=== PATIENT | male | born 1975 | race Two or more races ===

== ENCOUNTER 2024-03-27 04:08 | Emergency (ER) | payer OTHER ==
[~2024-03-27] VITALS: Ht 165.1 cm; Wt 66.2 kg
[2024-03-27] MEDS ORDERED: KETOROLAC TROMETHAMINE 30 MG VIAL IV STA (05:29)
[2024-03-27] MEDS ORDERED: MEPERIDINE HCL/PF 50 MG/ML VIAL IM STA (05:29)
[2024-03-27] MEDS ORDERED: PROMETHAZINE HCL 50 MG/ML AMPUL IM STA (05:29)
[2024-03-27] MEDS ORDERED: HYOSCYAMINE SULFATE 0.125 MG TAB.SUBL SL ONE (05:30)
[2024-03-27] MEDS ORDERED: TAMSULOSIN HCL 0.4 MG CAP PO STA (05:30)
[2024-03-27 06:33] LABS: HEMATOCRIT 43.8 % (39.0-48.0); HEMOGLOBIN 15.5 g/dL (13-16.00); MEAN CORPUSCULAR HEMOGLOBIN 27.7 pg (27.00-32.0); MEAN CORPUSCULAR HGB CONC 35.5 g/dl (32.0-36.0); PLATELET COUNT 139 K/uL (150-450); RED BLOOD COUNT 5.61 M/uL (4.00-6.00); RED CELL DISTRIBUTION WIDTH 14.5 % (11.5-14.5)
[2024-03-27 06:42] LABS: CALCIUM 9.2 mg/dL (8.5-10.1); CREATININE SERUM 1.15 mg/dL (0.70-1.30); GFR 68.16; POTASSIUM 3.71 mEq/L (3.5-5.1)
[2024-03-27 06:58] LABS: URINE APPEARANCE Cloudy; URINE BILIRRUBIN Negative (NEGATIVE); URINE BLOOD Small; URINE COLOR Yellow; URINE GLUCOSE Negative (NEGATIVE); URINE LEUKOCYTE Trace; URINE NITRATE Negative; URINE PROTEIN 30 (NEGATIVE)
[2024-03-27 06:59] LABS: URINE BACTERIA 128.5 uL (0.0-1933); URINE EPITHELIAL CELLS 8.5 uL (0.0-38.8); URINE RBC 137.8 uL (0.0-20.8); URINE WBC 14.3 uL (0.0-23.2)
[2024-03-27 07:17] LABS: URINE CAST 0.29 uL (0.0-1.40); URINE KETONE >=160 (NEGATIVE)
== END 2024-03-27 07:59 | disposition home or self-care (01) ==
LOC: ER 04:10
DX: N20.1 Calculus of ureter (principal); Z87.442 Personal history of urinary calculi